=== PATIENT | female | born 1980 | race Caucasian/White ===

== ENCOUNTER 2016-09-16 10:53 | Emergency (ER) | payer OTHER ==
[~2016-09-16] VITALS: Ht 167.6 cm; Wt 86.2 kg
[2016-09-16 10:58] VITALS: BP 145/99; PULSE 76; RESP 16; TEMP 96.8; O2SAT 100
--- NOTE | 2016-09-16 11:04 | NUR ---
Patient to ER bed 7 to gown for evaluation. Side rails up. Report given to Ramila ENGEL.
--- NOTE | 2016-09-16 11:10 | NUR ---
Stable, alert and oriented x4. States rock fell onto left foot prior to arrival. Left lateral foot has bruise with swelling, pedal pulse present & strong,able to wiggle all toes freely, no numbness/tingling per patient, sensation present, cap refill less than 3 secs. No deformities noted. No other complaints/injuries per patient or noted.
[2016-09-16 12:15] VITALS: BP 131/75; PULSE 76; RESP 16; TEMP 96.8; O2SAT 100
--- NOTE | 2016-09-16 12:15 | NUR ---
Patient given written and verbal discharge instructions and verbalizes understanding. ER MD Dr. Downs discussed with patient the results and treatment provided. Patient in stable condition. ID arm band removed. Rx of ibuprofen given. Patient educated on pain management and to follow up with PMD. Pain Scale 0/10 Opportunity for questions provided and answered.
== END 2016-09-16 12:15 | disposition home or self-care (01) ==
LOC: SED 10:53
DX: S90.32XA Contusion of left foot, initial encounter (principal); Z88.1 Allergy status to other antibiotic agents; W20.8XXA Other cause of strike by thrown, projected or falling object, initial encounter; Y93.89 Activity, other specified; Y99.8 Other external cause status; Y92.89 Other specified places as the place of occurrence of the external cause
CPT/HCPCS: 99284